=== PATIENT | female | born 1995 | race Caucasian/White ===

== ENCOUNTER 2016-11-10 19:55 | Emergency (ER) | payer OTHER ==
--- NOTE | 2016-11-10 20:24 | ED Physician Documentation ---
Sore Throat/Dental Pain - HISTORIAN Historian: patient - HPI Stated Complaint: dental pain Chief Complaint: Dental Pain Additional Information: Extraction yesterday at [facility]. Thinks gum may be infected. Funny taste in mouth.No fever. - ROS CONST: no problems - PAST HX Past History: none Allergies/Adverse Reactions: Allergies Allergy/AdvReac Type Severity Reaction Status Date / Time No Known Allergies Allergy Verified 11/10/16 20:11 Home Medications: Ambulatory Orders Medication Instructions Recorded NK [NK] 11/10/16 - SOCIAL HX Smoking History: non-smoker - FAMILY HX Family History: No (no signif) - REVIEWED ASSESSMENTS Nursing Assessment Reviewed: Yes Vitals Reviewed: Yes Dental Pain Physical Exam - EXAM General Appearance: alert, mild distress (appears uncomfortable) Head/Neck: head nml inspection, trachea midline, other (#1 extraction site with mild swelling and erythema. no purulence) Eyes: eyes nml inspection, PERRL Mouth/Throat: lips nml, gums nml, pharynx nml, voice nml, dental tenderness ( see above) Ear/Nose: nml inspection Respiratory: no resp. distress, breath sounds nml CVS: heart sounds nml Extremities: nml ROM (gait) Skin: warm/dry, normal color Neuro/Psych: No: weakness Discharge Clincal Impression: Pain, dental Home Medications: Ambulatory Orders NK [NK] 11/10/16 Condition: Good Disposition: 01 HOME, SELF-CARE Decision to Admit: NO Decision Time: 20:29
[2016-11-10] MEDS ORDERED: AMOXICILLIN 500 MG CAPSULE PO ONE (20:42)
[2016-11-10 21:58] VITALS: BP 117/72
== END 2016-11-10 20:50 | disposition home or self-care (01) ==
LOC: EDBD 19:55 → ED 19:55
DX: K02.9 Dental caries, unspecified (principal)
CPT/HCPCS: 99283

== ENCOUNTER 2017-02-11 14:19 | Emergency (ER) | payer OTHER ==
[2017-02-11 15:14] LABS: APPEARANCE,URINE Clear (CLEAR); BASOPHILS % 0.3 (0.0-1.5); COLOR,URINE Yellow (YELLOW); EOSINOPHILS % 1.7 % (0.0-6.8); MEAN CORPUSCULAR HEMOGLOBIN 25.7 pg (28.0-34.0); MEAN CORPUSCULAR VOLUME 80.2 fl (80.0-100.0); MONOCYTES % 4.9 % (0.0-11.0); NEUTROPHILS # 7.5 # k/uL (1.4-7.7); OCCULT BLOOD,URINE Negative (NEGATIVE); PH URINE 5.5 (5.0 - 8.0); UROBILINOGEN URINE 0.2 Eu (0.2-1.0)
[2017-02-11 15:31] LABS: eGFR (African) > 60; eGFR (Non-African) > 60
[2017-02-11] MEDS: POTASSIUM CHLORIDE 20 MEQ TABLET.ER PO ONE (15:57)
[2017-02-11] MEDS: KETOROLAC TROMETHAMINE 60 MG/2 ML VIAL IM ONE (15:57)
--- NOTE | 2017-02-11 15:58 | ED Physician Documentation ---
Abdominal Pain - HISTORIAN Historian: patient - HPI Stated Complaint: RUQ abdominal pain Chief Complaint: Abdominal Pain Onset: days ago Duration: none Timing: still present Context: denies: out of country travel, bad food, recent trauma Severity: severe Quality: pain Further Comments: yes (21 year old female patient presents with complaints of RLQ and right laterl abdominal pain. Patient reports elective medical on 01/06/17, vaginal bleeding stopped 2 days ago. Reports nausea, vomiting and diarrhea.) - ROS CONST: recent illness GI/: none CVS/RESP: none EYES/ENT: none MS/SKIN/LYMPH: none NEURO/PSYCH: none - SOCIAL HX Smoking History: cigarettes - FAMILY HX Family History: denies: none - PAST HX Past History: none Ischemic Bowel Risk Factors: none Other History: other Home Medications: Ambulatory Orders Medication Instructions Recorded NK [NK] 11/10/16 Allergies/Adverse Reactions: Allergies Allergy/AdvReac Type Severity Reaction Status Date / Time No Known Allergies Allergy Verified 02/11/17 14:52 - VITAL SIGNS Vital Signs: Vital Signs Temp Pulse Resp BP Pulse Ox 98.2 F 88 16 132/74 99 02/11/17 15:55 02/11/17 15:55 02/11/17 15:55 02/11/17 15:55 02/11/17 15:55 - REVIEWED ASSESSMENTS Nursing Assessment Reviewed: Yes Vitals Reviewed: Yes Progress - Progress Progress: Patient reports using tylenol, ibuprofen and immodium prior to arrival. Medical history and pharmacy records reviewed. Multiple Rx's for pain medication noted. Reports "rash" as allergy to ibuprofen, but denies rash with dose today. Reviewed lab results with patient. Patient drove herself to ER, will not treat with narcotic. Instructed to follow up with PCP for ultrasound of pelvis to R/ o ovarian cyst. Patient requesting pain medication prescription at discharge. ED Results Lab/Radiology - Lab Results Lab Results: Lab Results 02/11/17 02/11/17 02/11/17 15:05 15:05 15:05 WBC 10.10 K/ul K/ul (4.00-12.00) RBC 4.84 M/ul M/ul (3.90-5.20) Hgb 12.4 g/dL g/dL (12.0-16.0) Hct 38.8 % % (34.5-46.5) MCV 80.2 fl fl (80.0-100.0) MCH 25.7 pg L pg (28.0-34.0) MCHC 32.0 g/dL g/dL (30.0-36.0) RDW 12.8 % % (11.3-14.3) Plt Count 281 K/mm3 K/mm3 (130-400) Neut % (Auto) 75.0 % % (39.0-79.0) Lymph % (Auto) 16.6 % % (16.0-50.0) Alexander % (Auto) 4.9 % % (0.0-11.0) Eos % (Auto) 1.7 % % (0.0-6.8) Baso % (Auto) 0.3 (0.0-1.5) Neut # (Auto) 7.5 # k/uL # k/uL (1.4-7.7) Lymph # (Auto) 1.7 # k/uL # k/uL (0.6-4.0) Alexander # (Auto) 0.5 # k/uL # k/uL (0.0-0.9) Eos # (Auto) 0.2 # k/uL # k/uL (0.0-0.6) Baso # (Auto) 0.0 # k/uL # k/uL (0.0-0.5) Reactive Lymphs % 1.6 % % (0.0-5.0) Reactive Lymphs # 0.2 # k/uL # k/uL (0.0-0.8) Sodium 139 mmol/L mmol/L (136-145) Potassium 3.3 mmol/L L mmol/L (3.5-5.0) Chloride 107 mmol/L mmol/L (98-110) Carbon Dioxide 26 mmol/L mmol/L (20-32) BUN 13 mg/dL mg/dL (10-26) Creatinine 0.6 mg/dL mg/dL (0.4-1.5) Estimated Creat Clear 198 Est GFR ( Amer) > 60 (60 - ) Est GFR (Non-Af Amer) > 60 (60 - ) Glucose 115 mg/dL H mg/dL (70-99) Calcium 9.8 mg/dL mg/dL (8.5-10.5) Total Bilirubin 0.4 mg/dL mg/dL (0.2-1.2) AST 15 U/L U/L (0-41) ALT 9 U/L U/L (0-45) Alkaline Phosphatase 51 U/L U/L (46-116) Total Protein 7.2 g/dL g/dL (6.0-8.5) Albumin 4.6 g/dL g/dL (3.0-5.5) Urine Color Yellow (YELLOW) Urine Appearance Clear (CLEAR) Urine pH 5.5 (5.0 - 8.0) Ur Specific [place] >=1.030 H (1.010-1.030) Urine Protein 1+ mg/dL H mg/dL (NEGATIVE) Urine Ketones Negative mg/dL mg/dL (NEGATIVE) Urine Occult Blood Negative (NEGATIVE) Urine Nitrite Negative (NEGATIVE) Urine Bilirubin 1+ H (NEGATIVE) Urine Urobilinogen 0.2 Eu Eu (0.2-1.0) Ur Leukocyte Esterase Negative (NEGATIVE) Urine Glucose Negative mg/dL mg/dL (NEGATIVE) - Orders Orders: ED Orders Category Date Time Status CBC/PLATELET/DIFF Stat Lab 02/11/17 15:05 Completed CMP Stat Lab 02/11/17 15:05 Completed UA W/MICRO IF INDICATED Stat Lab 02/11/17 15:05 Completed Ketorolac Tromethamine [Toradol] Med 02/11/17 15:45 Discontinued 60 mg IM NOW ONE Potassium Chloride [Klor-Con M20] Med 02/11/17 15:45 Discontinued 20 meq PO NOW ONE Abdominal Pain Physical Exam - Physical Exam General Appearance: no acute distress EENT: eye inspection normal, SUSHILA RESPIRATORY: no resp distress, chest non-tender, breath sounds normal CVS: reg rate & rhythm, heart sounds normal, equal pulses, no murmur, no gallop , PMI nml, no JVD, no friction rub, 24 ABDOMEN: soft, no organomegaly, normal bowel sounds, no abdominal bruit, no distension SKIN: normal color, warm/dry, NR, INT, PAL, DR EXTREMITIES: non-tender, normal range of motion, no evidence of injury, no edema , J, BOARD CERTIFIED MUSIC THERAPIST NEURO: oriented X3, CN's nml as tested, motor nml, sensation nml Vital Signs: Vital Signs Temp Pulse Resp BP Pulse Ox 98.2 F 88 16 132/74 99 02/11/17 15:55 02/11/17 15:55 02/11/17 15:55 02/11/17 15:55 02/11/17 15:55 Discharge Clincal Impression: Abdominal pain Qualifiers: Abdominal location: right lower quadrant Qualified Code(s): R10.31 - Right lower quadrant pain Referrals: Luis Alfredo Salazar DO [Primary Care Provider] - 2 Days Additional Instructions: Diagnosis: RLQ pain Follow up with your primary care this week for further evaluation and possibly a pelvic ultrasound. Tylenol 650-1000mg every 4 hours as needed for pain. Do not exceed 4G per 24 hours Return to the emergency department or call your doctor, if you are having severe abdominal pain, fever >101.0, or if there is blood in the vomit or diarrhea, or you cannot keep down liquids or solid food Home Medications: Ambulatory Orders NK [NK] 11/10/16 Condition: Stable Disposition: 01 HOME, SELF-CARE Decision to Admit: NO Decision Time: 15:57
[2017-02-11 16:11] VITALS: BP 132/74
== END 2017-02-11 15:55 | disposition home or self-care (01) ==
LOC: ED 14:19
DX: R10.31 Right lower quadrant pain (principal)
CPT/HCPCS: 80053; 81002; 85025; A9270; J1885; 96372; 99283

== ENCOUNTER 2017-08-12 18:50 | Emergency (ER) | payer OTHER ==
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
[2017-08-12 21:47] VITALS: BP 119/63
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
== END 2017-08-12 21:00 | disposition home or self-care (01) ==
LOC: ED 18:50
DX: S09.90XA Unspecified injury of head, initial encounter (principal); V89.2XXA Person injured in unspecified motor-vehicle accident, traffic, initial encounter
CPT/HCPCS: 70450; 72125; 81025; 99282; 99283